=== PATIENT | female | born 1970 | race Caucasian/White ===

== ENCOUNTER 2025-01-02 09:09 | Emergency (ER) | payer BC ==
[~2025-01-02] VITALS: Ht 167.6 cm; Wt 104.3 kg
[2025-01-02 10:24] LABS: PLATELET COUNT (AUTO) 187 K/uL (150-450); RED BLOOD CELL COUNT(AUTO) 3.98 MIL/uL (4.0-5.2); RED CELL DISTRIBUTION WIDTH 19.2 % (11.5-15.0); WHITE BLOOD COUNT (AUTO) 6.1 K/uL (4.3-11.0)
[2025-01-02 10:43] LABS: CALCIUM, SERUM 8.7 mg/dL (8.5-10.1); CREATININE 0.7 mg/dL (0.6-1.3); SODIUM SERUM 132.0 mmol/L (136-145); UREA NITROGEN, BLOOD 18.0 mg/dL (7-18)
[2025-01-02 11:06] VITALS: BP 105/50; TEMP 98.4; O2SAT 97
== END 2025-01-02 11:07 | disposition home or self-care (01) ==
LOC: ER 09:17
DX: D64.9 Anemia, unspecified (principal); R22.43 Localized swelling, mass and lump, lower limb, bilateral; F32.A Depression, unspecified; I10 Essential (primary) hypertension
CPT/HCPCS: 36415; 80048-TC; 83735-TC; 85025-TC